=== PATIENT | female | born 1950 | race African-American/Black ===

== ENCOUNTER 2019-12-24 10:27 | Emergency (ER) | payer OTHER ==
[~2019-12-24] VITALS: Ht 152.4 cm; Wt 104.3 kg
[2019-12-24] MEDS ORDERED: SUPER THERAVIT1 EACH PO (12:32)
[2019-12-24 12:48] LABS: URINE BLOOD TRACE (Negative); URINE CLARITY TURBID; URINE COLOR YELLOW; URINE GLUCOSE-RANDOM* NEGATIVE (Negative); URINE KETONES TRACE (Negative); URINE LEUKOCYTES-REFLEX TRACE (Negative); URINE NITRITE-REFLEX NEGATIVE (Negative); URINE PROTEIN (DIPSTICK) TRACE (Negative); URINE SPECIFIC GRAVITY >= 1.030 (1.005-1.035)
[2019-12-24 12:51] LABS: ABSOLUTE NEUTROPHILS 4.1 thou/uL (1.4-8.2); BASOPHILS 0.6 % (0.0-2.0); EOSINOPHILS 8.3 % (0.0-3.0); HEMATOCRIT 42.8 % (37.0-47.0); HEMOGLOBIN 14.1 gm/dL (12.0-15.0); LYMPHOCYTES 29.2 % (24.0-44.0); MCH 28.5 pg (26.0-34.0); MCV 86.3 fL (80.0-100.0); MONOCYTES 10.1 % (1.0-8.0); PLATELET COUNT 301 thou/uL (150-400); POLYS 51.8 % (36.0-66.0); RBC 4.96 mil/uL (4.20-5.00); RDW 15.2 % (10.5-14.5)
[2019-12-24 12:53] LABS: ICTOTEST (BILI CONFIRMATORY) Negative (Negative); URINE BILIRUBIN NEGATIVE (Negative)
[2019-12-24 12:58] LABS: CALCIUM 9.8 mg/dL (8.5-10.1); CREATININE 0.9 mg/dL (0.6-1.0); POTASSIUM 4.2 mmol/L (3.5-5.1)
[2019-12-24 13:04] LABS: ALBUMIN 3.6 g/dL (3.4-5.0); TOTAL BILIRUBIN 0.4 mg/dL (0.2-1.0); TOTAL PROTEIN 7.3 g/dL (6.4-8.2)
[2019-12-24] MEDS ORDERED: ZOFRAN ODT4 MG PO (15:26)
[2019-12-24 15:55] VITALS: BP 135/74
== END 2019-12-24 15:55 | disposition home or self-care (01) ==
LOC: ER 10:27
PROVIDERS: Physician Assistant
DX: R11.2 Nausea with vomiting, unspecified (principal); R10.32 Left lower quadrant pain; Z79.899 Other long term (current) drug therapy